=== PATIENT | male | born 1955 | race Caucasian/White ===

== ENCOUNTER 2018-01-19 09:59 | Outpatient (CLI) | payer BC, SELFPAY ==
[2018-01-19 11:27] LABS: ALT 37 U/L (12-78); AST 20 U/L (15-37); Alkaline Phosphatase 67 U/L (46-116); Anion Gap 9.1 mmol/L (3-11); BUN 22 mg/dL (7-18); Bilirubin, Total 0.5 mg/dL (0.2-1.0); CO2 25.9 mmol/L (21.0-32.0); CREATININE 1.19 mg/dL (0.70-1.30); Calcium 9.1 mg/dL (8.5-10.1); Chloride 105 mmol/L (98-107); Glucose 94 mg/dL (70-100); Potassium 4.3 mmol/L (3.5-5.1); Sodium 140 mmol/L (136-145); Total Protein 7.1 g/dL (6.4-8.2)
== END 2018-01-19 10:19 ==
PROVIDERS: PCP Family Medicine; Visit Provider Family Medicine
DX: Z00.00 Encounter for general adult medical examination without abnormal findings (principal); I10 Essential (primary) hypertension
CPT/HCPCS: 36415; 80053

== ENCOUNTER 2021-08-19 03:09 | Outpatient (CLI) | payer OTHER, SELFPAY ==
[2021-08-19 13:14] LABS: ALT 34 U/L (16-63); AST 17 U/L (15-37); Alkaline Phosphatase 90 U/L (46-116); Anion Gap 8.6 mmol/L (3-11); BUN 29 mg/dL (7-18); Bilirubin, Total 0.5 mg/dL (0.2-1.0); CO2 27.4 mmol/L (21.0-32.0); CREATININE 1.5 mg/dL (0.70-1.30); Calculated LDL 101 mg/dL (<100); Chloride 106 mmol/L (98-107); Cholesterol 169 mg/dL (<200); Estimated GFR 47.12 (mL/min/1.73m2); Glucose 100 mg/dL (74-106); HDL Cholesterol 35 mg/dL (40-60); Potassium 4.5 mmol/L (3.5-5.1); Sodium 142 mmol/L (136-145); Total Protein 7.2 g/dL (6.4-8.2); Triglyceride 165 mg/dL (<150)
== END 2021-08-19 03:10 | disposition home or self-care (01) ==
LOC: LOS 03:09
PROVIDERS: PCP Nurse Practitioner Family; Visit Provider Nurse Practitioner Family
DX: I10 Essential (primary) hypertension (principal); Z13.220 Encounter for screening for lipoid disorders
CPT/HCPCS: 36415; 80053; 80061

== ENCOUNTER 2021-10-02 02:21 | Outpatient (CLI) | payer OTHER, SELFPAY ==
[2021-10-02 12:45] LABS: Anion Gap 9.2 mmol/L (3-11); BUN 27 mg/dL (7-18); CO2 26.8 mmol/L (21.0-32.0); CREATININE 1.6 mg/dL (0.70-1.30); Calcium 8.6 mg/dL (8.5-10.1); Chloride 104 mmol/L (98-107); Estimated GFR 43.74 (mL/min/1.73m2); Glucose 100 mg/dL (74-106); Potassium 3.7 mmol/L (3.5-5.1); Sodium 140 mmol/L (136-145)
== END 2021-10-02 02:22 | disposition home or self-care (01) ==
LOC: LOS 02:21
PROVIDERS: PCP Nurse Practitioner Family; Visit Provider Nurse Practitioner Family
DX: I10 Essential (primary) hypertension (principal)
CPT/HCPCS: 36415; 80048

== ENCOUNTER 2022-04-27 03:20 | Outpatient (CLI) | payer OTHER, SELFPAY ==
[2022-04-27 10:46] LABS: Anion Gap 5.4 mmol/L (3-11); BUN 22 mg/dL (7-18); CO2 28.6 mmol/L (21.0-32.0); CREATININE 1.4 mg/dL (0.70-1.30); Calcium 9.2 mg/dL (8.5-10.1); Chloride 104 mmol/L (98-107); Estimated GFR 56.13 (mL/min/1.73m2); Glucose 117 mg/dL (74-106); Potassium 3.9 mmol/L (3.5-5.1); Sodium 138 mmol/L (136-145)
== END 2022-04-27 03:21 | disposition home or self-care (01) ==
LOC: LBO 03:20
PROVIDERS: PCP Nurse Practitioner Family; Visit Provider Nurse Practitioner Family
DX: I10 Essential (primary) hypertension (principal)
CPT/HCPCS: 36415; 80048

== ENCOUNTER 2023-01-13 19:28 | Outpatient (CLI) | payer MEDICARE, SELFPAY ==
[2023-01-13 17:31] LABS: ALT 53 U/L (16-63); AST 26 U/L (15-37); Albumin 4.5 g/dL (3.4-5.0); Alkaline Phosphatase 67 U/L (46-116); Anion Gap 11.3 mmol/L (3-11); BUN 27 mg/dL (7-18); Bilirubin, Total 0.6 mg/dL (0.2-1.0); CO2 25.7 mmol/L (21.0-32.0); CREATININE 1.5 mg/dL (0.70-1.30); Calcium 9.4 mg/dL (8.5-10.1); Chloride 104 mmol/L (98-107); Estimated GFR 51.35 (mL/min/1.73m2); Glucose 101 mg/dL (74-106); Potassium 4.3 mmol/L (3.5-5.1); Sodium 141 mmol/L (136-145); Total Protein 7.7 g/dL (6.4-8.2)
== END 2023-01-13 19:29 | disposition home or self-care (01) ==
LOC: LBO 19:29
PROVIDERS: PCP Nurse Practitioner Family; Visit Provider Nurse Practitioner Family
DX: I10 Essential (primary) hypertension (principal)
CPT/HCPCS: 36415; 80053

== ENCOUNTER 2023-10-21 14:48 | Outpatient (CLI) | payer MEDICARE, SELFPAY ==
[2023-10-21 12:22] LABS: Abs Immature Grans 0.06 10^3/uL (0.0-0.06); Absolute Eosinophil Count 0.14 10^3/uL (0.0-0.7); Absolute Neutrophil Count 4.91 10^3/uL (1.2-6.7); Basophils % 1.2 %; Eosinophils % 1.7 %; HGB 13.1 g/dL (13.5-17.5); Immature Grans % 0.7 %; Lymphocytes % 23.7 %; MCH 28.9 pg (27.0-33.0); MCHC 34.5 % (32.0-36.0); MCV 84 fL (80-95); MPV 8.6 fL (8.0-11.0); Monocytes % 11.2 %; Neutrophils % 61.5 %; Platelet Count 371 10^3/uL (130-400); RBC 4.53 10^6/uL (4.36-5.78); RDW 11.7 % (11.8-14.1); RDW-SD 35.2 fL; WBC 8.01 10^3/uL (4.4-10.8)
[2023-10-21 12:55] LABS: Hemoglobin A1C 5.7 % (<5.7)
[2023-10-21 13:13] LABS: Iron 74 ug/dL (65-175); Total Iron Binding Capacity 329 ug/dL (250-450)
[2023-10-21 13:21] LABS: ALT 39 U/L (16-63); AST 18 U/L (15-37); Albumin 4.1 g/dL (3.4-5.0); Alkaline Phosphatase 80 U/L (46-116); Anion Gap 9.7 mmol/L (3-11); BUN 22 mg/dL (7-18); Bilirubin, Total 0.47 mg/dL (0.2-1.0); CO2 25.3 mmol/L (21.0-32.0); CREATININE 1.5 mg/dL (0.70-1.30); Calcium 9.5 mg/dL (8.5-10.1); Calculated LDL 48 mg/dL (<100); Chloride 103 mmol/L (98-107); Cholesterol 157 mg/dL (<200); Estimated GFR 51.03 (mL/min/1.73m2); Ferritin 217 ng/mL (26-388); Glucose 102 mg/dL (74-106); HDL Cholesterol 35 mg/dL (40-60); Sodium 138 mmol/L (136-145); TSH (W/Ref FT4) 2.49 uIU/mL (0.36-3.74); Total Protein 8.2 g/dL (6.4-8.2); Triglyceride 372 mg/dL (<150); Vitamin B12 359 pg/mL (193-986)
[2023-10-22 07:53] LABS: PSA, Screening 6.1 ng/mL (<=4.5)
[2023-10-22 09:22] LABS: Transferrin 258 mg/dL (201-352)
[2023-11-04 10:37] LABS: Testosterone, Total 285 ng/dL (240-950)
== END 2023-10-21 14:49 | disposition home or self-care (01) ==
LOC: LBO 14:51
PROVIDERS: PCP Nurse Practitioner Family; Visit Provider Nurse Practitioner Family
DX: Z12.5 Encounter for screening for malignant neoplasm of prostate (principal); D50.9 Iron deficiency anemia, unspecified; Z13.6 Encounter for screening for cardiovascular disorders; N18.32 Chronic kidney disease, stage 3b; Z13.1 Encounter for screening for diabetes mellitus; R53.83 Other fatigue
CPT/HCPCS: 80053; 80061; 84153; 84402; 84403; 82607; 82728; 83036; 83540; 83550; 84443; 84466; 85025

== ENCOUNTER 2024-06-05 10:30 | Outpatient (CLI) | payer MEDICARE, SELFPAY ==
--- NOTE | 2024-06-05 10:00 | DI.RAD_ITS ---
Exam(s) XR KNEE LT 3V AP,LAT,JULIET EXAM: XR KNEE LT 3V AP,LAT,JULIET CLINICAL HISTORY: Worsening pain, lt knee pain, M25.562. TECHNIQUE: 2D digital imaging was performed. Three views. COMPARISON: No exams were available for comparison FINDINGS: BONES: No acute fracture is present. No bony destructive lesion is seen. JOINTS: There is severe degenerative changes of the medial femoral tibial joint space the with some r egularity at the articular surface is well as periarticular spurring. Chondrocalcinosis present in t he menisci. A small joint effusion is seen. SOFT TISSUE: Normal. 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 DATA REPOSITORY: RADIATION DOSE DELIVERED:
== END 2024-06-05 10:50 ==
LOC: DI 10:31
PROVIDERS: PCP Nurse Practitioner Family; Visit Provider Nurse Practitioner Family
DX: M25.562 Pain in left knee (principal)
CPT/HCPCS: 73562

== ENCOUNTER → 2025-01-02 10:53 | Outpatient (BNVA) | payer MEDICARE, SELFPAY | PROVIDERS: PCP Nurse Practitioner Family; Referring Provider Nurse Practitioner Family; Visit Provider Physician Assistant | DX: M25.562 Pain in left knee (principal); M17.12 Unilateral primary osteoarthritis, left knee | CPT/HCPCS: 20610; J1010 ==

== ENCOUNTER 2025-01-03 13:21 | Outpatient (CLI) | payer MEDICARE, SELFPAY ==
[2025-01-03 12:40] LABS: Hemoglobin A1C 5.7 % (<5.7)
[2025-01-03 12:52] LABS: Anion Gap 13.4 mmol/L (3-11); BUN 31 mg/dL (7-18); CO2 19.6 mmol/L (21.0-32.0); Calcium 9.5 mg/dL (8.5-10.1); Calculated LDL 120 mg/dL (<100); Chloride 103 mmol/L (98-107); Cholesterol 185 mg/dL (<200); Estimated GFR 50.71 (mL/min/1.73m2); Glucose 132 mg/dL (74-106); HDL Cholesterol 47 mg/dL (>or=40); Potassium 4.2 mmol/L (3.5-5.1); Sodium 136 mmol/L (136-145); Triglyceride 92 mg/dL (<150)
[2025-01-04 11:07] LABS: PSA, Screening 4.1 ng/mL (<=4.5)
== END 2025-01-03 13:22 | disposition home or self-care (01) ==
LOC: LBO 13:21
PROVIDERS: PCP Nurse Practitioner Family; Visit Provider Nurse Practitioner Family
DX: Z13.6 Encounter for screening for cardiovascular disorders (principal); Z13.1 Encounter for screening for diabetes mellitus; Z12.5 Encounter for screening for malignant neoplasm of prostate
CPT/HCPCS: 36415; 80048; 80061; 84153; 83036

== ENCOUNTER → 2025-03-12 09:11 | Outpatient (BNVA) | payer MEDICARE, SELFPAY | PROVIDERS: PCP Nurse Practitioner Family; Referring Provider Nurse Practitioner Family; Visit Provider Student in an Organized Health Care Education/Training Program | DX: M17.12 Unilateral primary osteoarthritis, left knee (principal) | CPT/HCPCS: 99214 ==